=== PATIENT | male | born 1980 | race Two or more races ===

== ENCOUNTER 2024-07-20 20:57 | Emergency (ER) | payer OTHER ==
[~2024-07-20] VITALS: Ht 190.5 cm; Wt 120.2 kg
[2024-07-20] MEDS ORDERED: KETOROLAC TROMETHAMINE 30 MG VIAL IM STA (22:59)
[2024-07-20] MEDS ORDERED: ORPHENADRINE CITRATE 30 MG/ML AMPUL IM STA (22:59)
[2024-07-20] MEDS ORDERED: ZANAFLEX4 M1 PO (23:37)
[2024-07-20] MEDS ORDERED: DICLOFENAC POTA50 MG PO (23:37)
== END 2024-07-20 23:49 | disposition home or self-care (01) ==
LOC: ER 21:00
DX: S29.8XXA Other specified injuries of thorax, initial encounter (principal); V49.88XA Car occupant (driver) (passenger) injured in other specified transport accidents, initial encounter; Y93.89 Activity, other specified; Y92.89 Other specified places as the place of occurrence of the external cause; Y99.8 Other external cause status